=== PATIENT | female | born 1945 ===

== ENCOUNTER → 2018-11-29 22:38 | Outpatient (ROUT) | payer MEDICARE, SELFPAY ==
[2018-11-30 00:05] LABS: Free T3, Triiodothyronine Free 2.76 pg/mL (2.77-5.27); Free T4, Direct Thyroxine 0.99 ng/dL (0.78-2.19); T4 Total Thyroxine 5.41 ug/dL (5.5-11.0)
[2018-11-30 00:18] LABS: Thyroid Stimulating Hormone 3.62 uIU/mL (0.47-4.68)
== END ==
PROVIDERS: Visit Provider Family Medicine
DX: E03.9 Hypothyroidism, unspecified (principal); R53.83 Other fatigue
CPT/HCPCS: 36415; 84436; 84439; 84443; 84481